=== PATIENT | female | born 1955 | race Caucasian/White ===

== ENCOUNTER 2022-05-05 21:16 | Inpatient (IN) | payer MEDICAID ==
[~2022-05-05] VITALS: Ht 157.5 cm; Wt 66.7 kg
[2022-05-05] MEDS ORDERED: IPRATROPIUM/ALBUTEROL 0.5-3(2.5)MG/3ML NEB HHN ONE (21:30)
[2022-05-05 21:48] LABS: BASOPHILS % 0.3 % (0.0-2.0); EOSINOPHILS % 1.2 % (0.0-5.0); HEMATOCRIT. 48.1 % (36.0-48.0); HEMOGLOBIN. 16.5 g/dL (12.0-16.0); LYMPHOCYTES % 31.6 % (20.0-50.0); MEAN CORPUSCULAR HEMOGLOBIN 32.2 pg (28.0-32.0); MEAN CORPUSCULAR VOLUME 93.9 fL (81.0-99.0); MEAN PLATELET VOLUME 7.7 fl (7.4-10.4); NEUTROPHILS % 59.9 % (40.0-76.0); PLATELET 437 x1000/uL (130-400); RED BLOOD CELL COUNT 5.13 mill/uL (4.2-5.4); RED CELL DISTRIBUTION WIDTH 13.6 % (11.6-14.6)
[2022-05-05 22:00] LABS: CHLORIDE 95 mEq/L (98-107)
[2022-05-05] MEDS ORDERED: METHYLPREDNISOLONE SOD SUCC 125 MG/2 ML VIAL IV ONE (22:45)
[2022-05-06] VITALS (9 sets, daily range): BP systolic 111–141; BP diastolic 52–78
[2022-05-06] MEDS ORDERED: METHYLPREDNISOLONE SOD SUCC 125 MG/2 ML VIAL IV NR (00:30)
[2022-05-06 01:21] LABS: CLARITY URINE CLEAR (CLEAR); COLOR URINE DARK YELLOW (YELLOW); KETONES URINE NEGATIVE (NEGATIVE); LEUKOCYTE ESTERASE URINE NEGATIVE (NEGATIVE); NITRITE URINE NEGATIVE (NEGATIVE); OCCULT BLOOD URINE NEGATIVE (NEGATIVE); PROTEIN URINE NEGATIVE (NEGATIVE); SPECIFIC GRAVITY URINE 1.006 (1.005-1.030)
[2022-05-06 08:51] LABS: BG BASE EXCESS 3.8 mmol/L (-2.0-2.0); BG CARBOXYHEMOGLOBIN 1.3 % (0.5-1.5); BG DEOXYHEMOGLOBIN 3.7 % (0.0-5.0); BG FRACTION INSPIRED OXYGEN 30; BG METHEMOGLOBIN 0.2 % (0.0-1.5); BG OXYGEN SATURATION 96.2 % (92.0-98.5); BG OXYHEMOGLOBIN 94.8 % (94.0-97.0); BG PH 7.388 (7.350-7.450); BG PO2 80.5 mmHg (75.0-100.0); BG SAMPLE SITE RIGHT RADIAL; BG VENT MODE MASK - BIPAP
[2022-05-06] MEDS ORDERED: IPRATROPIUM/ALBUTEROL 0.5-3(2.5)MG/3ML NEB HHN PRN (09:15)
[2022-05-06] MEDS: PREDNISONE 20MG TABLET PO SCH ×2 (10:13→17:40)
[2022-05-06] MEDS ORDERED: POTASSIUM CHLORIDE 20MEQ TABLET SR PO NR (11:15)
[2022-05-06] MEDS: BENZONATATE 100MG CAPSULE PO PRN ×2 (11:51→21:16)
[2022-05-06] MEDS: AMLODIPINE 5MG TABLET PO SCH ×2 (13:04→21:16)
[2022-05-06] MEDS: ASPIRIN 81MG TABLET PO SCH (13:04)
[2022-05-06] MEDS ORDERED: DOCUSATE SODIUM 100MG CAPSULE PO PRN (13:30)
[2022-05-06] MEDS ORDERED: ONDANSETRON HCL 4MG/2ML INJ IV PRN (13:30)
[2022-05-06] MEDS ORDERED: HYDROCODONE/ACETAMINOPHEN 5/325MG TABLET PO PRN (13:30)
[2022-05-06] MEDS ORDERED: LORAZEPAM 0.5MG TABLET PO PRN (13:30)
[2022-05-06] MEDS ORDERED: ACETAMINOPHEN 325MG TABLET PO PRN ×2 (13:30)
[2022-05-06] MEDS ORDERED: CLONIDINE 0.1MG TABLET PO PRN (13:30)
[2022-05-06] MEDS: BUDESONIDE 0.5MG/2ML NEB HHN SCH ×2 (13:58→20:36)
[2022-05-06] MEDS: IPRATROPIUM/ALBUTEROL 0.5-3(2.5)MG/3ML NEB HHN SCH ×2 (13:58→20:36)
[2022-05-06 14:08] LABS: CHLORIDE 97 mEq/L (98-107)
[2022-05-06] MEDS: GUAIFENESIN 600MG ER TABLET PO SCH (21:16)
[2022-05-07] VITALS (8 sets, daily range): BP systolic 100–133; BP diastolic 49–85
[2022-05-07] MEDS: IPRATROPIUM/ALBUTEROL 0.5-3(2.5)MG/3ML NEB HHN SCH ×2 (02:07→09:41)
[2022-05-07 06:56] LABS: HEMATOCRIT. 43.8 % (36.0-48.0); HEMOGLOBIN. 15.1 g/dL (12.0-16.0); LYMPHOCYTES % 9.4 % (20.0-50.0); MEAN CORPUSCULAR HEMOGLOBIN 32.2 pg (28.0-32.0); MEAN CORPUSCULAR VOLUME 93.3 fL (81.0-99.0); MONOCYTES % 3.7 % (2.0-8.0); NEUTROPHILS % 86.9 % (40.0-76.0); PLATELET 402 x1000/uL (130-400); RED CELL DISTRIBUTION WIDTH 13.8 % (11.6-14.6)
[2022-05-07] MEDS: BENZONATATE 100MG CAPSULE PO PRN (07:55)
[2022-05-07 08:01] LABS: CHLORIDE 99 mEq/L (98-107)
[2022-05-07] MEDS: ASPIRIN 81MG TABLET PO SCH (09:32)
[2022-05-07] MEDS: PREDNISONE 20MG TABLET PO SCH (09:33)
[2022-05-07] MEDS: GUAIFENESIN 600MG ER TABLET PO SCH (09:38)
[2022-05-07] MEDS: AMLODIPINE 5MG TABLET PO SCH (09:38)
[2022-05-07] MEDS: BUDESONIDE 0.5MG/2ML NEB HHN SCH (09:41)
[2022-05-07] MEDS ORDERED: ASPI-1160 PO (10:16)
[2022-05-07] MEDS ORDERED: AMLO5TAB88 PO (10:16)
[2022-05-07] MEDS ORDERED: GUAI600T44 PO (10:16)
[2022-05-07] MEDS ORDERED: FAMO20TA8 MT (10:16)
[2022-05-07] MEDS ORDERED: P20 MT (10:16)
[2022-05-07] MEDS ORDERED: BENZ100C86 PO (10:16)
[2022-05-07] MEDS ORDERED: FLUT1DIS2 INH (10:16)
[2022-05-07] MEDS ORDERED: ALBU18HF2 IH (10:16)
== END 2022-05-07 17:17 | disposition home or self-care (01) | DRG 140 ==
LOC: ER 21:16 → MICUSO 22:39 → ENRESERV 05-06 00:20 → 5EST 05-06 04:51
PROVIDERS: ADMIT Internal Medicine; ATTEND Internal Medicine
PROC: 5A09357 Assistance with Respiratory Ventilation, Less than 24 Consecutive Hours, Continuous Positive Airway Pressure (ICD-10-PCS; principal; 2022-05-05)
DX: J44.1 Chronic obstructive pulmonary disease with (acute) exacerbation (principal); J96.01 Acute respiratory failure with hypoxia; I21.4 Non-ST elevation (NSTEMI) myocardial infarction; Z20.822 Contact with and (suspected) exposure to COVID-19; E87.6 Hypokalemia; I16.0 Hypertensive urgency; F17.210 Nicotine dependence, cigarettes, uncomplicated; D72.829 Elevated white blood cell count, unspecified; R73.9 Hyperglycemia, unspecified; Z86.16 Personal history of COVID-19
CPT/HCPCS: 36415; 36600; 71045; 80048; 80053; 80061; 81003; 82375; 82805; 83036; 83735; 83880; 84484; 85025; 87426; 93005; 93306; 99291; C9803; J2930; J7512; J7626

== ENCOUNTER 2023-09-02 15:34 | Emergency (ER) | payer MEDICAID ==
[~2023-09-02] VITALS: Ht 157.5 cm; Wt 67.0 kg
[~2023-09-02 15:34] MED LIST: ALBU18HF2 IH; AMLO5TAB88 PO; ASPI-1160 PO; BENZ100C86 PO; FAMO20TA8 MT; FLUT1DIS2 INH; GUAI600T44 PO; P20 MT
[2023-09-02 15:48] VITALS: BP 132/63; PULSE 93; RESP 18; O2SAT 94
[2023-09-02] MEDS: ACETAMINOPHEN 325MG TABLET PO NR ×2 (17:30→18:15)
[2023-09-02 18:15] VITALS: TEMP 98.2
[2023-09-02 19:50] LABS: BASOPHILS % 0.6 % (0.0-2.0); EOSINOPHILS % 3.7 % (0.0-5.0); HEMATOCRIT. 47.1 % (36.0-48.0); HEMOGLOBIN. 15.9 g/dL (12.0-16.0); LYMPHOCYTES % 24.2 % (20.0-50.0); MEAN CORPUSCULAR HEMOGLOBIN 32.8 pg (28.0-32.0); MEAN CORPUSCULAR HGB CONC 33.8 g/dL (31.0-37.0); MEAN CORPUSCULAR VOLUME 96.8 fL (81.0-99.0); MEAN PLATELET VOLUME 7.8 fl (7.4-10.4); MONOCYTES % 5.9 % (2.0-8.0); NEUTROPHILS % 65.6 % (40.0-76.0); PLATELET 369 x1000/uL (130-400); RED BLOOD CELL COUNT 4.86 mill/uL (4.2-5.4); RED CELL DISTRIBUTION WIDTH 13.8 % (11.6-14.6); WHITE BLOOD COUNT 10.5 x1000/uL (4.5-11.0)
[2023-09-02 20:04] LABS: ALANINE AMINOTRANSFERASE 27 IU/L (10-49); ALBUMIN 4.9 g/dL (3.2-4.8); ASPARTATE AMINOTRANSFERASE 36 IU/L (<34); BILIRUBIN TOTAL 0.4 mg/dL (0.1-1.0); CALCIUM 9.2 mg/dL (8.7-10.4); CARBON DIOXIDE 31 mEq/L (21-32); CHLORIDE 104 mEq/L (98-107); CREATININE 0.7 mg/dL (0.6-1.0); GLUCOSE 100 mg/dL (70-105); PROTEIN TOTAL 8.3 g/dL (6.0-8.3); SODIUM 140 mEq/L (136-145); UREA NITROGEN BLOOD 15 mg/dL (9-23)
[2023-09-02] MEDS ORDERED: IOHEXOL-300 100 ML BOTTLE ONE (23:24)
== END 2023-09-02 22:47 | disposition home or self-care (01) ==
LOC: ER 16:02
DX: M54.50 Low back pain, unspecified (principal); J45.909 Unspecified asthma, uncomplicated; Z79.899 Other long term (current) drug therapy; V49.49XA Driver injured in collision with other motor vehicles in traffic accident, initial encounter; Y93.89 Activity, other specified; Y92.89 Other specified places as the place of occurrence of the external cause; Y99.8 Other external cause status
CPT/HCPCS: 80053; 85025; 85610; 36415; 71045; 71046; 70450; 71260; 72125; 74177; 99285; Q9967; Z7610